=== PATIENT | female | born 1950 | race African-American/Black ===

== ENCOUNTER 2022-06-12 21:44 | Emergency (ER) | payer MEDICARE ==
[~2022-06-12] VITALS: Ht 165.1 cm; Wt 64.9 kg
--- NOTE | 2022-06-12 21:55 | NUR ---
[facility] ALS TO BED #10
[2022-06-12 22:01] VITALS: BP 164/75
--- NOTE | 2022-06-12 22:08 | NUR ---
Patient being evaluated by physician at bedside.
[2022-06-12 22:37] LABS: BASOPHILS # (AUTO) 0.1 K/uL (0.00-0.22); BASOPHILS % (AUTO) 0.6 % (0.0-2.0); EOSINOPHILS # (AUTO) 0.2 K/uL (0-0.4); EOSINOPHILS % (AUTO) 2.2 % (0.0-4.0); HEMATOCRIT 34.5 % (36-48); HEMOGLOBIN 11.7 g/dL (12.0-16.0); LYMPHOCYTES # (AUTO) 3.1 K/uL (2.5-16.5); LYMPHOCYTES % (AUTO) 36.4 % (20.5-51.1); MEAN CORPUSCULAR HEMOGLOBIN 30 pg (27-31); MEAN CORPUSCULAR HGB CONC 34 g/dL (33-37); MEAN CORPUSCULAR VOLUME 87.3 fL (80-94); MONOCYTES # (AUTO) 0.5 K/uL (0.8-1.0); MONOCYTES % (AUTO) 6.3 % (1.7-9.3); NEUTROPHILS # (AUTO) 4.6 K/uL (1.8-7.7); NEUTROPHILS % (AUTO) 54.5 % (42.2-75.2); PLATELET COUNT (AUTO) 276 K/uL (140-450); RED BLOOD CELL COUNT(AUTO) 3.95 MIL/uL (4.20-5.40); RED CELL DISTRIBUTION WIDTH 13.2 % (11.6-13.7); WHITE BLOOD COUNT (AUTO) 8.4 K/uL (4.8-10.8)
--- NOTE | 2022-06-12 22:40 | NUR ---
Lab at bedside for blood draw.
[2022-06-12 22:55] LABS: ALBUMIN 3.6 g/dL (3.4-5.0); ANION GAP 12.2 (8-16); CARBON DIOXIDE 30.6 mmol/L (21-32); CREATININE 0.7 mg/dL (0.6-1.3); POTASSIUM 3.8 mmol/L (3.5-5.1); TOTAL BILIRUBIN 0.4 mg/dL (0.0-1.0)
[2022-06-13] MEDS ORDERED: ACETAMINOPHEN 325 MG TAB PO ONE (00:45)
[2022-06-13] MEDS ORDERED: NITROGLYCERIN 0.4 MG TAB SL ONE (00:50)
--- NOTE | 2022-06-13 00:50 | NUR ---
FIRST CONTACT WITH PT. PT IN POSITION OF COMFORT. PT C/O PAIN, WILL FOLLOW THROUGH WITH ORDERS. PT CONTINUES TO AMBULATE BACK AND FORTH TO THE RESTROOM. DOES NOT APPEAR TO BE IN ANY DISTRESS. PT UPDATED ON TRANFER TO [facility].
[2022-06-13] MEDS ORDERED: ONDANSETRON 4 MG/2 ML VIAL IVP ONE (01:30)
[2022-06-13] MEDS ORDERED: MORPHINE SULFATE 4 MG/ML SYR IVP ONE (01:30)
--- NOTE | 2022-06-13 01:30 | NUR ---
ATTEMPTED TO MEDICATE PT WITH NITRO AND TYLENOL ORDERED. PT REFUSED, STATES "ITS NOT GOING TO WORK" DR. MONTGOMERY AWARE.
[2022-06-13] MEDS ORDERED: carvediloL 6.25 MG TAB PO ONE (01:55)
[2022-06-13] MEDS ORDERED: LOSARTAN 25 MG TAB PO ONE (01:55)
--- NOTE | 2022-06-13 02:30 | NUR ---
PT TO BE TRANSFERRED ALS TO [facility] ER TO ER TRANSFER, ETA 0300. ACCEPTING DR RASCON. # FOR REPORT [phone]
[2022-06-13] MEDS ORDERED: carvediloL 3.125 MG TAB ONE (03:03)
[2022-06-13] MEDS ORDERED: LOSARTAN 25 MG TAB ONE (03:03)
[2022-06-13 03:27] VITALS: BP 186/79
--- NOTE | 2022-06-13 03:35 | NUR ---
[facility] AT BEDSIDE FOR [place]
== END 2022-06-13 03:35 | disposition short-term general hospital (02) ==
LOC: MED 21:44
DX: R07.9 Chest pain, unspecified (principal); Z20.822 Contact with and (suspected) exposure to COVID-19; I10 Essential (primary) hypertension; Z88.8 Allergy status to other drugs, medicaments and biological substances; Z79.899 Other long term (current) drug therapy
CPT/HCPCS: 36415; 71045; 80053; 83880; 84484; 85025; 87426; 93005; 96374; 96375; 99285; J2270; J2405; Q0092